=== PATIENT | male | born 1990 | race Caucasian/White ===

== ENCOUNTER 2020-10-06 08:34 | Emergency (ER) | payer OTHER ==
--- NOTE | 2020-10-06 08:41 | ED Physician Documentation ---
PD HPI CHEST PAIN - Stated complaint Stated Complaint: CHEST TIGHT/HEAD PX - History obtained from History obtained from: Patient - History of Present Illness Timing - onset: Yesterday Timing - onset during: Rest. No: Light activity, Exertion Timing - duration: Days (1) Timing - details: Gradual onset (noted pain in upper abd/chest and then took his BP and noted it elevated.), Still present, Waxing and waning Quality: Pressure, Tightness Location: Left chest, Right chest Radiation: Back Associated symptoms: No: Shortness of air, Diaphoresis, Nausea, Cough Similar symptoms before: Has not had sx before Recently seen: Not recently seen Review of Systems Constitutional: denies: Fever, Chills Nose: denies: Rhinorrhea / runny nose, Congestion Throat: denies: Sore throat Cardiac: denies: Chest pain / pressure Respiratory: denies: Cough GI: reports: Abdominal Pain. denies: Nausea, Vomiting, Diarrhea : denies: Dysuria, Frequency Musculoskeletal: denies: Neck pain, Back pain Neurologic: denies: Generalized weakness, Near syncope, Headache PD PAST MEDICAL HISTORY - Past Medical History Cardiovascular: None Respiratory: None Neuro: None Endocrine/Autoimmune: None - Present Medications Home Medications: Ambulatory Orders Medication Instructions Recorded Confirmed Albuterol Sulfate [Proair Hfa 2 - 3 puffs INH Q4H PRN #1 gm 10/06/20 Inhaler] Losartan [Cozaar] 50 mg PO DAILY 30 Days #30 tablet 10/06/20 dexAMETHasone [Decadron] 4 mg PO DAILY #5 tablet 10/06/20 - Allergies Allergies/Adverse Reactions: Allergies Allergy/AdvReac Type Severity Reaction Status Date / Time amoxicillin Allergy Hives Verified 10/06/20 08:43 Penicillins Allergy Hives Verified 10/06/20 08:43 PD ED PE NORMAL - Vitals Vital signs reviewed: Yes - General General: Alert and oriented X 3, No acute distress, Well developed/nourished - HEENT HEENT: Pharynx benign - Neck Neck: Supple, no meningeal sign, No adenopathy - Cardiac Cardiac: RRR, No murmur - Respiratory Respiratory: Clear bilaterally - Abdomen Abdomen: Soft, Non tender - Derm Derm: Normal color, Warm and dry, No rash - Extremities Extremities: No tenderness to palpate, No edema, No calf tenderness / cord - Neuro Neuro: Alert and oriented X 3, No motor deficit, Normal speech Eye Opening: Spontaneous Motor: Obeys Commands Verbal: Oriented GCS Score: 15 - Psych Psych: Normal mood, Normal affect Results - Vitals Vitals: Oxygen O2 Source Room air - EKG (time done) 08:59 Rate: Rate (enter#) (83) Rhythm: NSR Lindsay: Normal Intervals: Normal OR QRS: Normal Ischemia: Normal ST segments. No: ST elevation c/w ischemia, ST depression - Labs Labs: Laboratory Tests 10/06/20 10/06/20 10/06/20 09:06 09:10 09:10 WBC 3.8 L RBC 4.93 Hgb 15.5 Hct 44.8 MCV 90.9 MCH 31.4 H MCHC 34.6 RDW 12.0 Plt Count 211 MPV 9.2 Neut # (Auto) 1.6 Lymph # (Auto) 1.5 [place] # (Auto) 0.5 Eos # (Auto) 0.1 Baso # (Auto) 0.0 Absolute Nucleated RBC 0.00 Nucleated RBC % 0.0 D-Dimer < 200.0 L Sodium 136 Potassium 4.1 Chloride 97 L Carbon Dioxide 27 Anion Gap 12.0 BUN 17 Creatinine 1.1 Estimated GFR (MDRD) 79 L Glucose 99 Calcium 9.2 Total Bilirubin 2.1 H AST 46 H ALT 42 Alkaline Phosphatase 48 Troponin I High Sens B-Natriuretic Peptide Total Protein 8.0 Albumin 4.6 Globulin 3.4 Albumin/Globulin Ratio 1.4 Lipase 24 10/06/20 10/06/20 09:10 09:10 WBC RBC Hgb Hct MCV MCH MCHC RDW Plt Count MPV Neut # (Auto) Lymph # (Auto) [place] # (Auto) Eos # (Auto) Baso # (Auto) Absolute Nucleated RBC Nucleated RBC % D-Dimer Sodium Potassium Chloride Carbon Dioxide Anion Gap BUN Creatinine Estimated GFR (MDRD) Glucose Calcium Total Bilirubin AST ALT Alkaline Phosphatase Troponin I High Sens 5.0 B-Natriuretic Peptide 32 Total Protein Albumin Globulin Albumin/Globulin Ratio Lipase - Rads (name of study) chest xray Radiology: Prelim report reviewed (negative), See rad report PD MEDICAL DECISION MAKING - ED course Complexity details: reviewed results (ADD-RS +Ddimer score is zero which evaluates risk for aortic dissection. Trop and BNP negative. ECG is good. No significant cause for chest tightness. Presume bronchial as associated with tightness breathing. Mild improvement with ALbuterol MDI in ER. ), re-evaluated patient (He has had borderline high BP for terminal carman and now more elevated and he would like to start BP med. This is reasonable at low dose daily and to follow up with PMD. ), considered differential, d/w patient Departure - Departure Disposition: 01 Home, Self Care Clinical Impression: Elevated blood pressure reading, Chest tightness Hypertension Qualifiers: Hypertension type: primary hypertension Qualified Code(s): I10 - Essential (primary) hypertension Condition: Stable Record reviewed to determine appropriate education?: Yes Instructions: ED Chest Pain Atypical Unkn Cause Follow-Up: [facility] [Provider Group] Prescriptions: Losartan [Cozaar] 50 mg PO DAILY 30 Days #30 tablet dexAMETHasone [Decadron] 4 mg PO DAILY #5 tablet Albuterol Sulfate [Proair Hfa Inhaler] 2 - 3 puffs INH Q4H PRN #1 gm PRN Reason: Shortness Of Air/Wheezing Comments: There is no signs of a serious cause of your chest tightness based on EKG, chest x-ray, blood test. Considerations could be some reactive airway or bronchial inflammation given your symptoms. I would suggest trying an albuterol inhaler 2 to 3 puffs 3-4 times a day for the next several days to week. Also Decadron steroid anti-inflammatory for airway inflammation. Your blood pressure was elevated today which can be just reacting to your symptoms. However since you have had borderline elevated blood pressure for a while per your description, it is reasonable to start a low-dose daily blood pressure medicine. I wrote a prescription for this. Take it daily. Recheck your blood pressure periodically over the next week or 2. Follow-up with your primary care in the next 1 to 2 weeks for reevaluation. Return if worsening symptoms overall. Discharge Date/Time: 10/06/20 10:56
[2020-10-06] MEDS ORDERED: KETOROLAC 15 MG/ML VIAL IVP STA (09:06)
[2020-10-06] MEDS ORDERED: ALBUTEROL 1 PUFF INH STA (09:06)
[2020-10-06 09:29] LABS: BASOPHILS % (AUTO) 1.1 %; EOSINOPHILS # (AUTO) 0.1 10^3/uL (0.0-0.7); EOSINOPHILS % (AUTO) 3.7 %; HCT - HEMATOCRIT 44.8 % (42.0-52.0); HGB - HEMOGLOBIN 15.5 g/dL (14.0-18.0); LYMPHOCYTES # (AUTO) 1.5 10^3/uL (1.5-3.5); MEAN CORPUSCULAR HEMOGLOBIN 31.4 pg (27.0-31.0); MEAN CORPUSCULAR HGB CONC 34.6 g/dL (32.0-36.0); MEAN CORPUSCULAR VOLUME 90.9 fL (80.0-94.0); MEAN PLATELET VOLUME 9.2 fL (7.4-11.4); MONOCYTES # (AUTO) 0.5 10^3/uL (0.0-1.0); MONOCYTES % (AUTO) 12.7 %; NEUTROPHILS # (AUTO) 1.6 10^3/uL (1.5-6.6); NEUTROPHILS % (AUTO) 43.2 %; PLT - PLATELET COUNT 211 10^3/uL (130-450); RED BLOOD COUNT 4.93 10^6/uL (4.70-6.10); WHITE BLOOD COUNT 3.8 x10^3/uL (4.8-10.8)
--- NOTE | 2020-10-06 09:39 | XRAY Report ---
PROCEDURE: Chest 1 View X-Ray INDICATIONS: Chest Pain TECHNIQUE: One view of the chest was acquired. COMPARISON: None. FINDINGS: Surgical changes and devices: None. Lungs and pleura: No pleural effusions or pneumothorax. Lungs are clear. Mediastinum: Mediastinal contours appear normal. Heart size is normal. Bones and chest wall: No suspicious bony lesions. Overlying soft tissues appear unremarkable. IMPRESSION: No acute cardiopulmonary abnormality. Reviewed by: Sidney Luong MD on 10/06/2020 9:38 AM PDT Approved by: Sidney Luong MD on 10/06/2020 9:38 AM PDT Station ID: [id number]
[2020-10-06 09:45] LABS: ALBUMIN 4.6 g/dL (3.2-5.5); ALBUMIN/GLOBULIN RATIO 1.4 (1.0-2.2); BILIRUBIN,TOTAL 2.1 mg/dL (0.2-1.0); CALCIUM 9.2 mg/dL (8.5-10.3); CREATININE 1.1 mg/dL (0.6-1.2); POTASSIUM 4.1 mmol/L (3.5-5.0)
[2020-10-06 10:49] VITALS: BP 151/96
== END 2020-10-06 10:56 | disposition home or self-care (01) ==
LOC: ED 08:34
DX: I10 Essential (primary) hypertension (principal); R07.9 Chest pain, unspecified
CPT/HCPCS: 36415; 80053; 83690; 83880; 84484; 85025; 85379; 93005; 94640; 96374; 99284

== ENCOUNTER 2021-10-29 20:41 | Emergency (ER) | payer OTHER ==
[2021-10-29 21:06] LABS: BASOPHILS # (AUTO) 0.1 10^3/uL (0.0-0.1); BASOPHILS % (AUTO) 0.9 %; EOSINOPHILS # (AUTO) 0.1 10^3/uL (0.0-0.7); HCT - HEMATOCRIT 42.4 % (42.0-52.0); HGB - HEMOGLOBIN 14.5 g/dL (14.0-18.0); LYMPHOCYTES # (AUTO) 2.4 10^3/uL (1.5-3.5); LYMPHOCYTES % (AUTO) 33.5 %; MEAN CORPUSCULAR HEMOGLOBIN 30.9 pg (27.0-31.0); MEAN CORPUSCULAR HGB CONC 34.2 g/dL (32.0-36.0); MEAN CORPUSCULAR VOLUME 90.4 fL (80.0-94.0); MEAN PLATELET VOLUME 9.2 fL (7.4-11.4); MONOCYTES % (AUTO) 13.8 %; NEUTROPHILS # (AUTO) 3.5 10^3/uL (1.5-6.6); NEUTROPHILS % (AUTO) 49.5 %; PLT - PLATELET COUNT 240 10^3/uL (130-450); RED BLOOD COUNT 4.69 10^6/uL (4.70-6.10); RED CELL DISTRIBUTION WIDTH 12.3 % (12.0-15.0)
[2021-10-29 21:07] LABS: BILIRUBIN,URINE NEGATIVE (NEGATIVE); GLUCOSE, URINE (UA) NEGATIVE (NEGATIVE); KETONES,URINE (UA) NEGATIVE (NEGATIVE); LEUKOCYTE ESTERASE, URINE NEGATIVE (NEGATIVE); NITRITE,URINE NEGATIVE (NEGATIVE); OCCULT BLOOD,URINE NEGATIVE (NEGATIVE); PH,URINE 7.5 PH (5.0-7.5); PROTEIN,URINE NEGATIVE (NEGATIVE); UROBILINOGEN,URINE 0.2 (NORMAL) E.U./dL (NORMAL)
[2021-10-29] MEDS ORDERED: LIDOCAINE VISCOUS 2% 15 ML UDC MM STA (21:07)
[2021-10-29] MEDS ORDERED: MAG HYDROX/AL HYDROX/SIMETH 30 ML UDC PO STA (21:07)
[2021-10-29] MEDS ORDERED: ONDANSETRON ODT 4 MG TABLET TL STA (21:07)
--- NOTE | 2021-10-29 21:07 | ED Physician Documentation ---
History of Present Illness - Stated complaint Stated Complaint: ABD PX - Chief complaint Chief Complaint: Abd Pain - Additonal information Additional information: 31-year-old male presents the emergency department for evaluation of 3 days up per abdominal discomfort and right upper quadrant pain. Some nausea but no vomiting. Symptoms are typically worse after eating. He is concerned he could be having biliary colic. He takes losartan for blood pressure only. No tobacco or alcohol use. No pertinent past surgical history. Review of Systems Constitutional: denies: Fever, Chills Throat: reports: Reviewed and negative Cardiac: reports: Reviewed and negative Respiratory: reports: Reviewed and negative GI: reports: Abdominal Pain, Nausea. denies: Vomiting, Constipation, Hematemesis, Bloody / black stool : reports: Reviewed and negative Skin: reports: Reviewed and negative Musculoskeletal: reports: Reviewed and negative PD PAST MEDICAL HISTORY - Past Medical History Cardiovascular: None Respiratory: None Neuro: None Endocrine/Autoimmune: None - Present Medications Home Medications: Ambulatory Orders Medication Instructions Recorded Confirmed Losartan [Cozaar] 50 mg PO DAILY 30 Days #30 tablet 10/06/20 10/29/21 - Allergies Allergies/Adverse Reactions: Allergies Allergy/AdvReac Type Severity Reaction Status Date / Time amoxicillin Allergy Hives Verified 10/29/21 20:51 Penicillins Allergy Hives Verified 10/29/21 20:51 - Social History Does the pt smoke?: No Smoking Status: Never smoker PD ED PE NORMAL - General General: Alert and oriented X 3, No acute distress, Well developed/nourished - HEENT HEENT: PERRL, Moist mucous membranes - Neck Neck: Supple, no meningeal sign, No adenopathy - Cardiac Cardiac: RRR, No murmur - Respiratory Respiratory: No respiratory distress, Clear bilaterally - Abdomen Abdomen: Normal bowel sounds, Soft. No: Non tender (Mild epigastric and right upper quadrant tenderness. No guarding or rebound. Negative Turner's.) - Back Back: No CVA TTP, No spinal TTP - Derm Derm: Normal color, Warm and dry, No rash - Extremities Extremities: No deformity, No tenderness to palpate, Normal ROM s pain - Neuro Neuro: Alert and oriented X 3, semiconductor bonder 2-12 intact Eye Opening: Spontaneous Motor: Obeys Commands Verbal: Oriented GCS Score: 15 Results - Vitals Vitals: Vital Signs - 24 hr 10/29/21 20:46 Temperature 36.5 C Heart Rate 73 Respiratory 16 Rate Blood Pressure 152/107 H O2 Saturation 100 Oxygen O2 Source Room air - Labs Labs: Laboratory Tests 10/29/21 10/29/21 10/29/21 20:03 21:02 21:02 WBC 7.0 RBC 4.69 L Hgb 14.5 Hct 42.4 MCV 90.4 MCH 30.9 MCHC 34.2 RDW 12.3 Plt Count 240 MPV 9.2 Neut # (Auto) 3.5 Lymph # (Auto) 2.4 [place] # (Auto) 1.0 Eos # (Auto) 0.1 Baso # (Auto) 0.1 Absolute Nucleated RBC 0.00 Nucleated RBC % 0.0 Sodium 137 Potassium 4.0 Chloride 98 L Carbon Dioxide 30 Anion Gap 9.0 BUN 27 H Creatinine 1.2 Estimated GFR (MDRD) 71 L Glucose 97 Calcium 9.7 Total Bilirubin 1.1 H AST 32 ALT 22 Alkaline Phosphatase 54 Total Protein 8.3 H Albumin 4.7 Globulin 3.6 Albumin/Globulin Ratio 1.3 Lipase 31 Urine Color YELLOW Urine Clarity CLOUDY Urine pH 7.5 Ur Specific [place] 1.010 Urine Protein NEGATIVE Urine Glucose (UA) NEGATIVE Urine Ketones NEGATIVE Urine Occult Blood NEGATIVE Urine Nitrite NEGATIVE Urine Bilirubin NEGATIVE Urine Urobilinogen 0.2 (NORMAL) Ur Leukocyte Esterase NEGATIVE Urine RBC None Seen Urine WBC 0-3 Ur Squamous Epith Cells NONE SEEN Amorphous Sediment Marked Urine Bacteria None Seen Ur Microscopic Review INDICATED Urine Culture Comments NOT INDICATED - Rads (name of study) CT abd Radiology: Final report received (Contracted gallbladder. Normal appendix. Source of abdominal pain not identified.) PD MEDICAL DECISION MAKING - ED course Complexity details: considered differential, d/w patient ED course: 31-year-old male presents emergency department for evaluation of 3 days of upper epigastric and right upper quadrant abdominal pain. Negative Turner's on exam. No fevers. Some nausea but no vomiting. Symptoms had seemed worse to patient after eating raising the concern for possible biliary colic. Here in the emergency department a CBC is without leukocytosis. Electrolytes unremarkable. No worrisome LFT derangements. A CT of the abdomen was completed. We do find a contracted gallbladder but no secondary findings suggest cholecystitis. Appendix was normal. No lipase elevation. Unfortunately abdominal ultrasound is not available at this time but given a relatively benign exam, labs without fevers leukocytosis or vomiting patient is stable for discharge home. Can consider possibility of gastritis as a cause but no acute surgical findings are seen today. Departure - Departure Disposition: 01 Home, Self Care Clinical Impression: Upper abdominal pain Condition: Stable Record reviewed to determine appropriate education?: Yes Comments: You are seen today in the emergency department because you have had a few days of upper abdominal pain. You were concerned that you could have possible gallbladder disorder. Here in the emergency department your blood count, electrolytes and liver function tests are all essentially normal. Ultrasound was not available at the time of your ER visit but we did do a CT of the abdomen that did not show any acute worrisome findings such as acute cholecystitis or appendicitis. Over the next 24 to 48 hours I do recommend clear liquid diet. It is possible that some of your symptoms could be caused by acid reflux. You may consider taking [id number] medication such as omeprazole or Pepcid once daily. If your symptoms worsen, you develop fevers, have uncontrolled vomiting, black or bloody stools then please return immediately to the ER for repeat evaluation. Good luck during your transfer
[2021-10-29 21:08] LABS: CLARITY,URINE CLOUDY (CLEAR)
[2021-10-29 21:15] LABS: AMORPHOUS SEDIMENT,UR Marked /LPF; BACTERIA,URINE None Seen /HPF (None Seen); RBC,URINE None Seen /HPF (0-5); SQUAMOUS EPITHELIAL CELL,UR NONE SEEN (<= Few); WBC,URINE 0-3 /HPF (0-3)
[2021-10-29 21:20] LABS: ALBUMIN 4.7 g/dL (3.2-5.5); ALBUMIN/GLOBULIN RATIO 1.3 (1.0-2.2); BILIRUBIN,TOTAL 1.1 mg/dL (0.2-1.0); CALCIUM 9.7 mg/dL (8.5-10.3); CREATININE 1.2 mg/dL (0.6-1.2); TOTAL PROTEIN 8.3 g/dL (6.7-8.2)
--- NOTE | 2021-10-29 21:41 | CT Report ---
PROCEDURE: Abdomen/Pelvis WO INDICATIONS: Upper abdominal right upper quadrant pain TECHNIQUE: Noncontrast 5 mm thick sections acquired from the diaphragms to the symphysis. 5 mm coronal and sagi ttal reformats were then performed. For radiation dose reduction, the following was used: automated exposure control, adjustment of mA and/or kV according to patient size. COMPARISON: None. FINDINGS: Image quality: Limited by absence of both oral and intravenous contrast. ABDOMEN: Lung bases: Lung bases are clear. Heart size is normal. Solid organs: Liver and spleen are normal in size. Gallbladder appears contracted but noninflamed Pancreas is normal in contours. No adrenal nodules. Kidneys are normal in size, without hydronephro sis or nephrolithiasis. Peritoneum and bowel: Unenhanced bowel loops demonstrate normal wall thickness and caliber. No free fluid or air. Nodes and vessels: No retroperitoneal or mesenteric adenopathy by size criteria. Aorta and inferior vena cava are normal in caliber. Miscellaneous: No ventral hernias. PELVIS: Genitourinary: Bladder wall thickness is normal. Miscellaneous: No inguinal hernias or adenopathy. Normal appendix found right lower quadrant. Bones: No suspicious bony lesions. No vertebral body compression fractures. IMPRESSION: Normal contracted gallbladder identified, normal appendix seen right lower quadrant. Source of abdomi nal pain is not found. Reviewed by: Berry Celis MD on 10/29/2021 9:40 PM PDT Approved by: Berry Celis MD on 10/29/2021 9:40 PM PDT Station ID: [id number]
[2021-10-29 21:59] VITALS: BP 133/76
== END 2021-10-29 21:58 | disposition home or self-care (01) ==
LOC: ED 20:41
DX: R10.10 Upper abdominal pain, unspecified (principal)
CPT/HCPCS: 36415; 74176; 80053; 81001; 83690; 85025; 99282; 99284; A9270; Q0162; 81003; 87086